=== PATIENT | male | born 1980 | race Caucasian/White ===

== ENCOUNTER 2018-05-08 20:01 | Inpatient (IN) | payer BC, OTHER ==
[~2018-05-08] VITALS: Ht 167.6 cm; Wt 95.3 kg
--- NOTE | 2018-05-09 02:45 | NUR ---
Pre-Admission Patient is a 37 year old male here at [facility] for medically supervised ETOH withdrawal. Patient is AOx4 and has steady gait. Patient is currently denying withdrawal symptoms. Pt has a history of Hypertension. Pt seems depressed, withdrawn and anxious. Pt reports he has been consuming 1 liter (1,000 ml) of Vodka daily for the past month. Pt last used [place] 0000 [place], he took two shots 88 ml of vodka. Initial vital signs: BP 167/102, RR16, P107, T 99.1, sat 96% on RA. Will continue to monitor upon arrival to unit.
[2018-05-09] MEDS ORDERED: LORAZEPAM 2 MG/1 ML VIAL IM PRN (03:00)
[2018-05-09] MEDS ORDERED: LORAZEPAM 1 MG TABLET PO PRN (03:00)
[2018-05-09] MEDS ORDERED: ACETAMINOPHEN 325 MG TABLET PO PRN (03:00)
[2018-05-09] MEDS ORDERED: MAG HYDROX/AL HYDROX/SIMETH 30 ML LIQUID UDC PO PRN (03:00)
[2018-05-09] MEDS ORDERED: ONDANSETRON ODT 4 MG TAB.RAPDIS SL PRN (03:00)
[2018-05-09] MEDS ORDERED: IBUPROFEN 600 MG TABLET PO PRN (03:00)
[2018-05-09] MEDS ORDERED: MIRALAX 17 GM POWD.PACK PO PRN (03:00)
[2018-05-09] MEDS ORDERED: MAGNESIUM HYDROXIDE 30 ML LIQUID UDC PO PRN (03:00)
[2018-05-09] MEDS ORDERED: LOPERAMIDE HCL 2 MG CAPSULE PO PRN ×2 (03:00)
[2018-05-09] MEDS ORDERED: ONDANSETRON 4 MG/2 ML VIAL IM PRN (03:00)
[2018-05-09] MEDS ORDERED: diphenhydrAMINE 50 MG CAPSULE PO PRN (03:00)
[2018-05-09] MEDS ORDERED: THIAMINE HCL 200 MG/2 ML VIAL IM ONE (03:00)
[2018-05-09] MEDS ORDERED: SRC ALCOHOL WITHDRAWAL ADMITTING PROTOCOL XX PRN (03:00)
--- NOTE | 2018-05-09 03:00 | NUR ---
Admission note Patient is a 37 year old male admitted on 05/09/18 at 0252 here at [facility] for medically supervised ETOH withdrawal. Patient is AOx4 and has a steady gait. Pt was using one liter (1,000 ml) every day for one month and before a month he was drinking 750 ml daily for 5 months. Pt reports he is currently not intoxicated but denies withdrawal symptoms at this moment. CIWA was deferred and will continue to monitor when symptoms are present. Pt reports his typical withdrawal symptoms consist of tremors, sweats, nausea, vomiting, diarrhea and anxiety. Pt seems depressed, withdrawn, flat affect and sad. Pt has a medical history of Hypertension and takes medication but does not know the name of the medication. Pt did not bring home meds. Pt has NKA and is full code. Pt follows a regular diet. Patient denies having any prior seizures, overdoses, induce delirium, black outs or cardiac complications. Pt has not been hospitalized within the last 30 days. Pt does not smoke cigarettes but he does chew tobacco. Pt denies smoking marijuana. Pt denies being in a 5150 in the past. Pt does not see a PCP or a Psychiatrist at the moment. Patient is a [employer] worker. He reports his highest level of education is 2 years of college. Patient first time in treatment. Substance abuse history: 1) ETOH: Patient states he has been drinking Vodka 1 liter (1,000 ml) daily for one month, before the month he states he was drinking 750 ml daily for 5 months. Pt stated he started drinking when he was 19 years old, he has been drinking for 18 years. Pt's last drink was 05/09/18 at 0000 of 2 shots (88 ml) of [place] the airport[place] Patient reports family history of substance abuse, he states his father and brother are alcoholics. He states his support system is his mother. Pt states he has tried 3 times to get sober on his own but has been unsuccessful. When asked pt why he drinks he stated "pain, my cheated on me three times". When asked pt why he wants to get sober he responded "I'm trying to better myself, it's all about me because if I dont stop drinking I'm going to ". Patients motivator are his kids, he has three young boys. Pt states he has never been in custodial but has faced legal consequences due to his drinking. Patient is 5'6" and weights 210 lbs per standing scale. Patient's skin is intact, dry, and warm to touch. Capillary refill is <3 seconds. PERRLA is present with pupils at 3 mm bilaterally. Lungs are clear to auscultation bilaterally. Abdomen is soft and non-distended and bowel sounds are present in all 4 quadrant, last BM 05/08/18. Initial vital signs are as follows: BP 167/102, RR16, P107, T 99.1, sat 96% on RA. Patient denies any pain. Breathing is even and unlabored. No signs and symptoms of respiratory distress. Patient was provided instructions regarding unit policies and rules. He provided urine and blood sample at intake office. Fall and seizure precautions initiated and maintained. Safety measures in place, bed in low and locked position, side rails up x2, and call light within reach. Will continue to monitor.
[2018-05-09 03:04] LABS: BASOPHILS % (AUTO) 0.4 % (0.0-2.0); EOSINOPHILS % (AUTO) 0.3 % (0.0-7.0); HEMATOCRIT 46.7 % (36.7-47.1); HEMOGLOBIN 16.2 g/dL (12.5-16.3); LYMPHOCYTES # (AUTO) 0.9 K/uL (20.0-40.0); LYMPHOCYTES % (AUTO) 19.2 % (20.5-51.5); MEAN CORPUSCULAR HEMOGLOBIN 31.2 uug (23.8-33.4); MEAN CORPUSCULAR HGB CONC 35 g/dL (32.5-36.3); MEAN CORPUSCULAR VOLUME 89.7 fL (73.0-96.2); MONOCYTES # (AUTO) 0.5 K/uL (2.0-10.0); NEUTROPHILS # (AUTO) 3.3 K/uL (1.8-8.9); NEUTROPHILS % (AUTO) 70.1 % (38.5-71.5); PLATELET COUNT (AUTO) 190 K/uL (152-348); WHITE BLOOD COUNT (AUTO) 4.7 K/uL (3.6-10.2)
[2018-05-09 03:27] LABS: *AMPHETAMINE, URINE NEGATIVE (NEGATIVE); *BARBITURATE, URINE NEGATIVE (NEGATIVE); *CANNABINOID, URINE NEGATIVE (NEGATIVE); *COCCAINE, URINE NEGATIVE (NEGATIVE); *OPIATE, URINE NEGATIVE (NEGATIVE); *PHENCYCLIDINE SCREEN,URINE NEGATIVE (NEGATIVE)
[2018-05-09 03:30] LABS: BILIRUBIN,TOTAL 0.6 mg/dL (0.2-1.0); MAGNESIUM 2.1 mg/dL (1.8-2.4); POTASSIUM 3.8 mmol/L (3.5-5.1); TOTAL PROTEIN, SERUM 9.1 g/dL (6.4-8.2)
[2018-05-09 03:39] LABS: THYROID STIMULATING HORMONE 2.903 mIU/mL (0.358-3.740)
[2018-05-09] MEDS: HYDROXYZINE PAMOATE 25 MG CAPSULE PO PRN (03:48)
[2018-05-09] MEDS: CLONIDINE HCL 0.1 MG TABLET PO PRN ×4 (03:49→20:08)
--- NOTE | 2018-05-09 03:50 | NUR ---
PRN Vistaril, Ativan 1mg and Clonidine Pt is presenting with anxiety, agitation and a CIWA scored of 14. Administered PRN and pt tolerated well. Will continue to monitor.
[2018-05-09 04:00] VITALS: BP 167/102
--- NOTE | 2018-05-09 04:00 | NUR ---
CIWA Assessment Pt is presenting with anxiety, tremors, and mild sweats. Pt's CIWA is 14. Safety measures in place and will continue to monitor.
--- NOTE | 2018-05-09 04:50 | NUR ---
Reassessment PRN Vistaril, Ativan 1mg and Clonidine Pt was noted in bed resting with lights off, eyes are closed breathing is even and unlabored. Medication was noted to be effective. Will continue to monitor.
--- NOTE | 2018-05-09 07:17 | NUR ---
End of shift note Pt is a 37 year old male admitted on 05/09/18 for medically supervised ETOH withdrawal. Pt is on fall and seizure precautions. Pt's last CIWA was 14. Pt had PRN Vistaril, Ativan and Clonidine. Pt was compliant with plan of care. Pt is noted to be depressed, withdrawn and has a flat affect. Pt slept for 2 hours and had a total intake 296 ml. Pt voided x1 and had no bowel movements during this shift. Safety measures are in place bed locked in low position, side rails up x2 and call light within reach. Will endorse to day shift.
[2018-05-09 08:00] VITALS: BP 158/87
--- NOTE | 2018-05-09 08:00 | NUR ---
START OF SHIFT AND CIWA ASSESSMENT Pt 37 y/o male admitted for eoth withdrawal. Pt received in room on bed with eyes closed resting, but arousable to name. Pt alert and oriented to name, place, and time. Perrla. Skin warm and moist to touch. Respirations even and unlabored. Appears disheveled. Clothes and empty drink bottles scattered throughout the room. Encouraged to maintain hygiene. It was reported that pt slept for 2 hours last night. ciwa=17 @0800. Anxious and restless. Pressured speech. Agitated and irritable. Resting bilateral hand tremors noted. Perspiration on forehead noted. Fidgety. Complaints of generalized discomfort. Pt is on a 5 day ativan taper and is on day 1. Bed on lowest position with side raislx 2 up for safety. Call light within reach.
[2018-05-09] MEDS: LORAZEPAM 1 MG TABLET PO PRN ×2 (09:02→12:23)
--- NOTE | 2018-05-09 09:02 | NUR ---
PRN ATIVAN ciwa=12. Anxious and restless. Bilateral hand tremors noted. Perspiration on forehead noted. Ativan 2mg po prn per MD order given.
--- NOTE | 2018-05-09 10:02 | NUR ---
PRN ATIVAN EVAL ciwa=10. Anxious and restless. Bilateral hand tremors noted. Complaints of generalized discomfort.
[2018-05-09 12:00] VITALS: BP 159/90
--- NOTE | 2018-05-09 12:26 | NUR ---
CIWA ASSESSMENT AND PRN ATIVAN ciwa=16. Anxious and restless. Fidgety. Irritable and agitated. pressured speech. Bilateral hand/ arm gross resting tremors noted. Perspiration on head and face noted. Complaints of generalized discomfort. Ativan 2mg po prn per MD order given.
--- NOTE | 2018-05-09 13:26 | NUR ---
PRN ATIVAN MALLIKAAL ciwa=9. Bilateral hand tremors. Anxious and restless. Complaints of generalized discomfort.
[2018-05-09] MEDS ORDERED: 5 DAY TAPER OF LORAZEPAM -SERENITY PROTOCOL PO PRN (13:30)
[2018-05-09] MEDS: LORAZEPAM 1 MG TABLET PO SCH ×2 (14:13→20:07)
[2018-05-09 16:00] VITALS: BP 167/100
--- NOTE | 2018-05-09 16:00 | NUR ---
CIWA ASSESSMENT ciwa=11. Anxious and restless. Pressured speech. Irritable. Bilateral hand tremors noted.
--- NOTE | 2018-05-09 16:52 | NUR ---
PRN CATAPRES ck=703/100. Catapres po prn per MD order given.
--- NOTE | 2018-05-09 17:52 | NUR ---
PRN SINDY EVAL bn=[id number]/88.
--- NOTE | 2018-05-09 19:30 | NUR ---
Start of Shift Patient Received. Patient is a 37 year old male that continues on a modified Ativan taper for ETOH Withdrawal. Patient was noted with episodes of hypertension throughout shift with change in orders for Clonidine 0.1 Q2H. Patient received PRN Clondine 0.1mg x2 and Ativan 2mg x2. Last noted 11. Upon rounds patient is noted in bed awake alert and verbally responsive. Breathing even and non labored. Patient appears disheveled, unkempt, unshaven, with flat, worried affect. He is able to verbalize increased anxiety, agitation, restlessness, racing thoughts, increased chills, and sweats, and flushed face. Patient verbalizes that tapered medication has been effective in minimizing signs and symptoms of withdrawal. Reviewed 2100 medications with patient and he was able to verbalize understanding. All needs attended to promptly. Will continue to monitor.
--- NOTE | 2018-05-09 19:45 | NUR ---
END OF SHIFT Pt 37 y/o male admitted for eoth withdrawal. Pt alert and oriented to name, place, and time. Perrla. Skin warm and moist to touch. Respirations even and unlabored. Appears disheveled. Food wrappings scattered throughout the room. Encouraged to maintain hygiene. Ciwa=11 @1600. Anxious and restless. Pressured speech. Agitated and restless. Bilateral hand tremors noted. Intermittent perspiration noted. Complaints of generalized discomfort. Pt is on a 5 day ativan taper and is on day 1. Bed on lowest position with side rails x 2 up for safety. Call light within reach.
[2018-05-09 20:03] VITALS: BP 175/98
--- NOTE | 2018-05-09 20:10 | NUR ---
WA Assessment/PRN Medication Administration Patient continues to be monitored for increased signs and symptoms of ETOH withdrawal. A modified tapered medication continues as ordered. Patient appears disheveled, unkempt, unshaven, flushed face, with flat, worried affect. He is able to verbalize increased anxiety, agitation, restlessness, racing thoughts, increased chills, sweats, and tremors. Patient is also noted with elevated blood pressure of 175/93. PRN Clonidine administered with routine taper medication. Will continue to monitor.
[2018-05-09 21:15] VITALS: BP 155/90
--- NOTE | 2018-05-09 21:15 | NUR ---
PRN Medication Reassessment Patient is noted in bed with eyes closed. Breathing even and non labored. No facial grimacing noted. No restlessness noted. Patient is easily awakened upon entering room. Vitals rendered and patient is noted with blood pressure of 155/90. Patient is noted to easily fall back to sleep. All needs attended to promptly. Will continue to monitor.
[2018-05-10] VITALS (7 sets, daily range): BP systolic 141–155; BP diastolic 85–107
--- NOTE | 2018-05-10 00:28 | NUR ---
CIWA Assessment Patient is noted in bed with eyes closed. breathing even and non labored. No facial grimacing noted. No restlessness noted. Patient complied with Vitals but was easily able to fall back to sleep. Patient denies need for medication All needs attended to promptly. Will continue plan of care as ordered.
--- NOTE | 2018-05-10 04:30 | NUR ---
CIWA Assessment Patient is noted in bed sleeping but is easily awakened upon entering the room. Breathing even and non labored. no signs of facial grimacing noted. patient is noted to verbalize intermittent anxiety, agitation, restlessness, chills, sweats, and is tremulous to touch. Patient denies need for medication and is noted to easily fall back to sleep with no complications noted. will continue to monitor.
[2018-05-10 07:05] LABS: HEPATITIS B SURFACE AG Negative (Negative)
--- NOTE | 2018-05-10 07:12 | NUR ---
End of Shift Patient noted in bed with eyes closed. Breathing even and non labored. No signs of restlessness or facial grimacing noted. Patient is a 37 year old male that continues on a modified Ativan taper for ETOH Withdrawal. Patient continues to be monitored for episodes of hypertension. Patient received PRN Clonidine with medication noted to be effective. Last noted CIWA 10. Patient appears disheveled, unshaven, flat with worried affect. He continues to be monitored for increased signs and symptoms of ETOH withdrawal. He verbalizes increased anxiety, agitation, restlessness, racing thoughts, increased chills, and sweats, and flushed face. All needs attended to promptly. Will endorse to continue plan of care as ordered.
--- NOTE | 2018-05-10 07:40 | NUR ---
START OF SHIFT Received report from night warehouse selector nurse. Pt is lying in bed resting wand easily arousable. He is a 37 yo Male admitted to [facility] on for ETOH withdrawal. He is A&O and ambulatory. Pt is on day 2 of a 5 day Ativan taper. He has a h/o HTN. He was administered clonidine on night warehouse selector. Last CIWA was 10 and he slept for 9 hours. Safety measures in place.
--- NOTE | 2018-05-10 08:20 | NUR ---
CIWA Pt has tremors, facial flushing, sweating, restlessness, and elevated B/P. His room is odorous and he appears disheveled. His affect is flat and mood is depressed. CIWA score 15.
[2018-05-10] MEDS: FOLIC ACID 1 MG TABLET PO SCH (08:21)
[2018-05-10] MEDS: THIAMINE HCL 100 MG TABLET PO SCH (08:21)
[2018-05-10] MEDS: LORAZEPAM 1 MG TABLET PO SCH ×4 (08:21→22:23)
[2018-05-10] MEDS: MULTIVITAMINS,THERAPEUTIC TABLET PO SCH (08:21)
[2018-05-10] MEDS: CLONIDINE HCL 0.1 MG TABLET PO PRN ×2 (08:22→10:25)
--- NOTE | 2018-05-10 08:22 | NUR ---
PRN Clonidine Pt's B/P is 151/107. PRN Clonidine administered.
[2018-05-10] MEDS ORDERED: TUBERCULIN,PURIF.PROT.DERIV. 5 TU/0.1 ML TEST ID ONE (09:00)
--- NOTE | 2018-05-10 09:40 | NUR ---
PRN Clonidine reassessment PRN Clonidine barely effective. Pt's B/P is 151/101. Clonidine is ordered Q2HPRN.
--- NOTE | 2018-05-10 09:42 | NUR ---
Therapist prompted client to attend group therapy.
--- NOTE | 2018-05-10 10:26 | NUR ---
PRN Clonidine Pt's B/P 151/101 and HR 95. PRN Clonidine administered.
--- NOTE | 2018-05-10 11:39 | NUR ---
PRN-ASSESSMENT Clonidine 0.1mg PO PRN was effective. BP was 140/90 and HR was 96 at resting period. Pt was encouraged increase fluid intake. Will continue to monitor.
--- NOTE | 2018-05-10 12:38 | NUR ---
CIWA ASSESSMENT Pt is c/o increase anxiety, agitation, sweats, chills, nausea and diarrhea. Pt is noted with facial sweats and fine tremors on BUE. CIWA score was 16. Encouraged increase fluid intake. Ativan 1mg PO as scheduled at 1300 was administered. Will continue to monitor.
--- NOTE | 2018-05-10 19:02 | NUR ---
END OF SHIFT Pt is a 37 yr old male, AA&Ox4. Pt was admitted on 05/09/18 for ETOH withdrawal and is on 5 day Ativan taper as ordered. Pt was observed with increase fatigue and remained in bed throughout the day. Pt was observed attending 1 group out of 3. Pt was c/o increase anxiety, sweats, chills, nausea, headache and diarrhea x1. Pt was observed with fine tremors and facial redness. Pt's room is noted with foul odor. Pt received Clonidine PRN x2 in the morning for increase BP. Medication was effective. Pt was encouraged increase fluid intake for hydration. Last CIWA score was 13. Endorsed to industrial rehabilitation consultant nurse to continue with care.
--- NOTE | 2018-05-10 19:15 | NUR ---
Start of Shift Note: Patient is a 37 y.o male admitted on 05/09/17 for medically supervised withdrawal from ETOH use. Pt currently on his day #2 of his 5-day Ativan taper and tolerating well. His last CIWA is 13. Pt received PRN Clonidine 2x during day shift for increased in BP. Encourage patient to increase fluid intake. Educated pt of current plan of care and medication regimen for the night. Safety measures in place. Bed alarm activated. Both side rails up. Call light within pts reach. Will continue to monitor patient.
--- NOTE | 2018-05-10 20:00 | NUR ---
CIWA Assessment: Pt is disheveled, unkempt and malodorous. Scattered clothes and empty food and bottles all over room. He appears flushed with anxious and irritable mood. He is showing withdrawal symptoms such as flushed face, sweating, & fine tremors. He denies pain or discomfort. No N/V/D noted. CIWA 12.
[2018-05-11] VITALS: BP 148/96
--- NOTE | 2018-05-11 04:00 | NUR ---
CIWA deferred Pt refused to be woken up for vitals at this time. Pt in bed with eyes close. No acute distress noted. respiration even & unlabored. CIWA deferred d/t pt is asleep and to be reassess when pt's is awake.. Will continue to monitor patient.
--- NOTE | 2018-05-11 06:56 | NUR ---
End of Shift Note: Patient continues on his 5-day Ativan taper and tolerating well. Pt stable throughout the shift with no acute distress noted. During shift, pt noted withdrawal symptoms such as flushed face, anxiety, agitation, clammy skin, & gross tremors. Last CIWA is 12. No PRN medications received during my shift. Encourage pt to increase fluid intake. All due medications and all needs attended. Continue to closely monitor patient for any s/s of withdrawal. Safety measures in place. Bed locked in lowest position. Both side rails up for safety. Call light within pts reach. Will endorse pt to day shift nurse.
--- NOTE | 2018-05-11 07:55 | NUR ---
Start of shift note; Received report from night nurse. Patient is a 37 year old male admitted on 05/09/17 for ETOH withdrawal. Patient was placed on a 5 day Ativan taper to help reduce withdrawal symptoms. Patient's last COWS score is 9 per endorsement. Patient slept fro 7 hours. All safety measures secured. Will continue to monitor patient.
[2018-05-11 08:00] VITALS: BP 156/101
--- NOTE | 2018-05-11 08:00 | NUR ---
CIWA assessment; Patient is AOX4, patient's current CIWA score is 13 manifested by anxiety, agitation, muscle aches, hypertension, tremors, stomach cramps, nausea and fatigue. PRN Zofran 4 mg ODT given for nausea and PRN Clonidine 0.1 mg PO given for BP of 156/101 . Will continue to monitor patient for effectiveness of medication.
[2018-05-11] MEDS: CLONIDINE HCL 0.1 MG TABLET PO PRN ×2 (08:33→12:30)
[2018-05-11] MEDS: THIAMINE HCL 100 MG TABLET PO SCH (08:34)
[2018-05-11] MEDS: FOLIC ACID 1 MG TABLET PO SCH (08:34)
[2018-05-11] MEDS: LORAZEPAM 1 MG TABLET PO SCH ×3 (08:34→20:44)
[2018-05-11] MEDS: MULTIVITAMINS,THERAPEUTIC TABLET PO SCH (08:34)
[2018-05-11 08:44] LABS: POTASSIUM 4.4 mmol/L (3.5-5.1); TOTAL PROTEIN, SERUM 8.1 g/dL (6.4-8.2)
--- NOTE | 2018-05-11 09:33 | NUR ---
Re-assessment; Patient's BP is 136/92 and patient denies nausea at this time. PRN Zofran and Clonidine noted to be effective.
[2018-05-11 12:00] VITALS: BP 164/104
--- NOTE | 2018-05-11 12:30 | NUR ---
PRN medication; Patient's BP is elevated BP of 164/104, PRN Clonidine 0.1 mg PO given as per ordered. Will continue to monitor patient for effectiveness of medication.
--- NOTE | 2018-05-11 13:30 | NUR ---
Re-assessment; PRN medication noted to be effective. BP of 130/86 noted at this time. Will continue to monitor patient.
[2018-05-11 16:00] VITALS: BP 137/98
--- NOTE | 2018-05-11 18:40 | NUR ---
End of shift note; Patient is AOX4, patient's last CIWA score is 12 at 1600 manifested by anxiety, agitation, muscle aches, hypertension, tremors, stomach cramps, nausea and fatigue. Patient received PRN Clonidine and PRN Zofran noted to be effective. Patient continues to be on Ativan taper, medications were effective in reducing withdrawal symptoms. Patient remained compliant with treatment plan and medication regime. All safety measures secured. Met all needs.
--- NOTE | 2018-05-11 19:30 | NUR ---
START OF SHIFT Received patient awake, alert, and oriented x4 lying in bed watching television. Patient is a 37 male admitted for medically supervised detox from ETOH with a secondary diagnosis of hypertension. Per endorsement, patient is on the 3rd day of a 5 day Ativan taper. He was given PRN Clonidine 2 times for anxiety and Zofram in the morning. He attended group sessions. Last CIWA score was 12. Upon assessment, patient was noted with anxiety, fine tremors, and restlessness. Patient stated My tremors are slowly dissipating while Im here, but theyre still there. Call light is functional and within reach. HOB and bilateral side rails raised for safety. Bed is in a low position and wheels are locked. Will continue to monitor.
[2018-05-11 20:00] VITALS: BP 151/102
[2018-05-11] MEDS: TRAZODONE 50 MG TABLET PO SCH (20:43)
--- NOTE | 2018-05-12 | NUR ---
VITAL SIGNS REFUSED Patient noted lying in bed with eyes closed and with even, unlabored respirations. Vital signs refused. HOB flat and bilateral side rails raised for safety. No s/s of distress noted at this time. Call light is functional and within reach. Will continue to monitor.
--- NOTE | 2018-05-12 07:26 | NUR ---
END OF SHIFT Patient is noted lying in bed with eyes closed and even, unlabored respirations. Patient is a 37 male admitted for medically supervised detox from ETOH with a secondary diagnosis of hypertension. During the shift, the patient was noted with anxiety, restlessness, and fine tremors. Patient refused any PRN meds and opted to allow taper medications to alleviate symptoms. No PRN meds were given. Patient slept for about 8 hours during the night. Last CIWA was 11 taken at 2000. Call light is functional and within reach. Bilateral side rails raised. All safety measures are in place. Bed is in a low position with wheels locked. Endorsed to oncoming AM shift nurse.
--- NOTE | 2018-05-12 07:30 | NUR ---
START OF SHIFT Pt 37 y/o admitted for etoh withdrawal. Pt received in room on bed with eyes closed resting, but arousable to name. Pt alert and oriented to nam, place, and time. Perrla. Skin warm and moist to touch. Respirations even and unlabored. Appears disheveled. Clothes scattered throughout the room. Encouraged to maintain hygiene. It was reported that pt slept for 8 hours last night. Anxious and restless. Pressured speech. Intermittent perspiration. Complaints of generalized discomfort. Pt is on a 5 day ativan taper and is on day 4. Bed on lowest position with side rails x 2up for safety. Call light within reach.
[2018-05-12 08:00] VITALS: BP 134/83
[2018-05-12] MEDS: FOLIC ACID 1 MG TABLET PO SCH (08:42)
[2018-05-12] MEDS: THIAMINE HCL 100 MG TABLET PO SCH (08:42)
[2018-05-12] MEDS: LORAZEPAM 1 MG TABLET PO SCH ×2 (08:42→21:48)
[2018-05-12] MEDS: MULTIVITAMINS,THERAPEUTIC TABLET PO SCH (08:42)
[2018-05-12 12:00] VITALS: BP 151/95
[2018-05-12 16:00] VITALS: BP 167/100
[2018-05-12] MEDS: CLONIDINE HCL 0.1 MG TABLET PO PRN ×2 (16:47→21:48)
--- NOTE | 2018-05-12 16:48 | NUR ---
PRN CATAPRES LW=881/100. Catapres po prn per MD order given.
--- NOTE | 2018-05-12 17:48 | NUR ---
PRN SINDY TENAAL zn=[id number]
--- NOTE | 2018-05-12 18:56 | NUR ---
END OF SHIFT Pt 37 y/o admitted for etoh withdrawal. Pt alert and oriented to nam, place, and time. Perrla. Skin warm and moist to touch. Respirations even and unlabored. Appears disheveled. Food wrappings and clothes scattered throughout the room. Encouraged to maintain hygiene. Last ciwa=11@1600. Anxious and restless. Bilateral hand tremors noted. Complaints of intermittent perspiration. Pressured speech. Complaints of generalized discomfort. Isolative to room this morning. Pt attended group activity. Pt is on a 5 day ativan taper and is on day 4. Bed on lowest position with side rails x 2up for safety. Call light within reach.
--- NOTE | 2018-05-12 19:52 | NUR ---
START OF SHIFT NOTE Rcvd report from outgoing nurse. Pt is a 37 y/o male A/O to person, place, time, and purpose. Pt was admitted for medically supervised withdrawal from ETOH. Pt has a medical h/o HTN. Pt is on day 4 of a 5 day Ativan taper. Pt has been presenting w/ anxiety, racing thoughts, flat affect teary eyed, tremors, and flushing. Pt rcvd PRN Clonidine and was noted effective by outgoing nurse. Last CIWA 11 @ 1600. Call light is within reach. Pt will continue to be monitored and needs met.
[2018-05-12 20:00] VITALS: BP 166/99
--- NOTE | 2018-05-12 21:48 | NUR ---
PRN CLONIDINE ADMINISTRATION Clonidine 0.1mg given for elevated BP 166/99. Pt denies lightheadedness and weakness. Will reassess pt in 1 hr.
[2018-05-12] MEDS: TRAZODONE 50 MG TABLET PO SCH (21:53)
--- NOTE | 2018-05-12 22:48 | NUR ---
PRN CLONIDINE REASSESSMENT Pt's BP 133/86. Will continue to monitor pt.
--- NOTE | 2018-05-13 | NUR ---
CIWA DEFERRED AND V/S REFUSED Pt is in bed w/ his eyes closed. Pt's respirations are unlabored and even. Pt is unarousable to name. Will continue to monitor pt.
--- NOTE | 2018-05-13 07:11 | NUR ---
END OF SHIFT NOTE Endorsed pt to oncoming nurse. Pt is a 37 y/o male A/O to person, place, time, and purpose. Pt was admitted for medically supervised withdrawal from ETOH. Pt has a medical h/o HTN. Pt completed day 4 of a 5 day Ativan taper. Pt continued presenting w/ anxiety, racing thoughts, flat affect teary eyed, tremors, and flushing. Pt denies any S/I or H/I. PRN Clonidine was given and noted effective. Pts fluid intake was 2900ml and he slept for 7.5hrs. Last WA 12 @ 1999. Call light is within reach.
--- NOTE | 2018-05-13 07:30 | NUR ---
Start of Shift Note: Report received from retail shift leader nurse. Last CI 12. Pt slept for 8 hours. Upon start of shift pt was in bed with eyes closed. During assessment pt appears anxious. Pt stated he is still not sure where he will go for his discharge location. Will make program services planner aware. Educated pt about current plan of care. Pt verbalized understanding. Pt denies pain at this time. Pt is currently on Ativan taper to manage withdrawal symptoms. Bed in lowest position. Side rails up x2. Call light functioning and within reach. All needs attended and met. Will continue to monitor.
[2018-05-13 08:00] VITALS: BP 142/93
[2018-05-13] MEDS: FOLIC ACID 1 MG TABLET PO SCH (08:38)
[2018-05-13] MEDS: THIAMINE HCL 100 MG TABLET PO SCH (08:38)
[2018-05-13] MEDS: MULTIVITAMINS,THERAPEUTIC TABLET PO SCH (08:38)
[2018-05-13] MEDS ORDERED: LORAZEPAM 1 MG TABLET PO SCH (09:00)
[2018-05-13 09:44] LABS: BILIRUBIN,DIRECT 0.1 mg/dL (0.0-0.2); BILIRUBIN,TOTAL 0.5 mg/dL (0.2-1.0); TOTAL PROTEIN, SERUM 8.2 g/dL (6.4-8.2)
[2018-05-13 12:00] VITALS: BP 148/91
--- NOTE | 2018-05-13 12:13 | NUR ---
Therapist prompted client to attend group therapy sessions.
[2018-05-13] MEDS ORDERED: CLON0.1T14 PO (12:50)
[2018-05-13 16:00] VITALS: BP 158/93
--- NOTE | 2018-05-13 18:51 | NUR ---
End of Shift Note: Pt currently in group activity. No PRN medications given. CIWA 8. Pt has completed Ativan taper to manage withdrawal symptoms. Pt is scheduled to discharge tomorrow to [facility]. Call light functioning and within reach. All needs attended and met. Endorsed to hotel night auditor nurse.
[2018-05-13 20:00] VITALS: BP 167/98
--- NOTE | 2018-05-13 20:00 | NUR ---
START OF SHIFT NOTE Rcvd report from outgoing nurse. Pt is a 37 y/o male A/O to person, place, time, and purpose. Pt was admitted for medically supervised withdrawal from ETOH. Pt completed a 5 day Ativan taper and is scheduled for discharge on 05/14/18. Pt has been presenting w/ anxiety, agitation, depressed mood, flat affect, racing thoughts, flushing, teary eyed, and unshaven. Pt rcvd no PRN medications during previous shift. Last CIWA 8 @ 1600. Call light is within reach. Pt will continue to be monitored and needs met.
[2018-05-13] MEDS: TRAZODONE 50 MG TABLET PO SCH (21:18)
[2018-05-13] MEDS: CLONIDINE HCL 0.1 MG TABLET PO PRN (21:18)
--- NOTE | 2018-05-13 21:18 | NUR ---
PRN CLONIDINE ADMINISTRATION ADMINISTRATION Clonidine 0.1mg for elevated BP 167/98. Will reassess pt in 1hr.
--- NOTE | 2018-05-13 22:18 | NUR ---
PRN CLONIDINE REASSESSMENT Pt is in bed w/ his eyes closed. Pt's respirations are unlabored and even.
--- NOTE | 2018-05-14 07:10 | NUR ---
END OF SHIFT NOTE Endorsed pt to oncoming nurse. Pt is a 37 y/o male A/O to person, place, time, and purpose. Pt was admitted for medically supervised withdrawal from ETOH. Pt completed a 5 day Ativan taper and is scheduled for discharge on 05/14/18. Pt continued presenting w/ anxiety, agitation, depressed mood, flat affect, racing thoughts, flushing, teary eyed, and unshaven. Pt denies any S/I or H//I. PRN Clonidine was given and noted effective. Pts fluid intake was 3182ml and he slept for 8.5hrs. Last CIWA 8 @ 2000. Call light is within reach.
--- NOTE | 2018-05-14 07:30 | NUR ---
START OF SHIFT pt 37 y/o male admitted for etoh withdrawal. Pt received in room awake watching television. Pt alert and oriented to name, place, and time. Perrla. Skin warm and moist to touch. Respirations even and unlabored. It was reported that pt slept for 9 hours last night. ciwa=6 @0800. Anxious and restless. Observed pacing. Pt completed a 5 day ativan taper. Pt is scheduled to be discharged today. Bed on lowest position with side rails x2 up for safety. Call light within reach.
[2018-05-14 08:00] VITALS: BP 140/92
[2018-05-14 08:22] VITALS: BP 144/90
[2018-05-14] MEDS: THIAMINE HCL 100 MG TABLET PO SCH (08:22)
[2018-05-14] MEDS: CLONIDINE HCL 0.1 MG TABLET PO PRN (08:22)
[2018-05-14] MEDS: HYDROXYZINE PAMOATE 25 MG CAPSULE PO PRN (08:22)
[2018-05-14] MEDS: MULTIVITAMINS,THERAPEUTIC TABLET PO SCH (08:22)
[2018-05-14] MEDS: FOLIC ACID 1 MG TABLET PO SCH (08:22)
--- NOTE | 2018-05-14 08:26 | NUR ---
PRN CATAPRES VISTARIL Pt states very anxious. Vistaril po prn per MD order given. Catapres po prn per MD order given.
--- NOTE | 2018-05-14 09:26 | NUR ---
PRN CATAPRES VISTARIL EVAL Pt states medications effective.
--- NOTE | 2018-05-14 09:50 | NUR ---
DISCHARGE pt 37 y/o male admitted for etoh withdrawal. Pt alert and oriented to name, place, and time. Perrla. Skin warm and moist to touch. Respirations even and unlabored. Pt denies any SI at time. Pt completed a 5 day ativan taper. No home medications, belongings in cassette, or belongings in cabinet noted, and reverified with pt. Prescriptions, belongings, and discharge papers packed in pt bag. No distress noted. Pt [facility] to [facility] via [facility] transport.
== END 2018-05-14 09:50 | DRG 895 ==
LOC: SRC 05-09 01:55
PROVIDERS: ADMIT Family Medicine Addiction Medicine; ATTEND Family Medicine Addiction Medicine
PROC: HZ2ZZZZ Detoxification Services for Substance Abuse Treatment (ICD-10-PCS; principal; 2018-05-09)
PROC: HZ31ZZZ Individual Counseling for Substance Abuse Treatment, Behavioral (ICD-10-PCS; 2018-05-10)
PROC: HZ41ZZZ Group Counseling for Substance Abuse Treatment, Behavioral (ICD-10-PCS; 2018-05-10)
DX: F10.230 Alcohol dependence with withdrawal, uncomplicated (principal); Y90.7 Blood alcohol level of 200-239 mg/100 ml; Z81.1 Family history of alcohol abuse and dependence; Z72.0 Tobacco use; R74.0 Nonspecific elevation of levels of transaminase and lactic acid dehydrogenase [LDH]; G47.00 Insomnia, unspecified; F41.9 Anxiety disorder, unspecified
CPT/HCPCS: 36415; 70030-TC; 80307; 83690; 83735; 84443; 85025; 86580; 86592; 86705; 86803; 87340; 87806; G0480; J3411; Q0162